=== PATIENT | male | born 1985 | race Two or more races ===

== ENCOUNTER → 2024-11-11 | Emergency (ER) | payer OTHER ==
[~2024-11-11] VITALS: Ht 170.2 cm; Wt 71.2 kg
[~2024-11-11] MED LIST: 0.9 % SODIUM CHLORIDE 1,000 ML IV ONE
[2024-11-11 12:41] LABS: BASO % 0.4 % (0.1-1.2); EOS # 0.10 (0.04-0.54); EOS % 0.7 % (0.7-7.0); LYMPH # 3.96 (1.18-3.74); LYMPH % 26.0 % (19.3-53.1); MEAN PLATELET VOLUME 9.70 fl (9.4-12.4); MONO # 1.34 (0.24-0.82); MONO % 8.8 % (4.7-12.5); NEUT # 9.74 (1.56-6.13); NEUT % 63.8 % (34.0-71.1); RED CELL DISTRIBUTION WIDTH 12.7 % (11.6-14.4)
[2024-11-11 13:06] LABS: COVID-19 AG NEGATIVE (NEGATIVE)
[2024-11-11 14:38] LABS: INR 0.97
[2024-11-11 14:55] LABS: ALT/SGPT 33.0 U/L (12-78); AST/SGOT 39.0 U/L (15-37); BILIRUBIN TOTAL 0.35 mg/dL (0.3-1.2); BUN CREA RATIO 10.0 (7.0-25.0); CREATININE SERUM 0.87 mg/dL (0.70-1.30); GFR 98.2; GLOBULINA 3.7 G/DL (2.4-3.5); GLUCOSE FASTING 124.0 mg/dL (65-100); OSMOLALITY SERUM 278.0 MOSM/KG (275-295)
[2024-11-11 15:07] LABS: PHOSPHOKINASE CREATININE 1092.0 U/L (39-308)
[2024-11-12 07:20] VITALS: BP 123/82; O2SAT 99
[2024-11-12 08:37] LABS: URINE APPEARANCE Clear; URINE BILIRRUBIN Negative (NEGATIVE); URINE BLOOD Negative; URINE COLOR Yellow; URINE GLUCOSE Negative (NEGATIVE); URINE KETONE Trace (NEGATIVE); URINE LEUKOCYTE Negative; URINE NITRATE Negative; URINE PROTEIN Negative (NEGATIVE); URINE UROBILINOGEN 0.2 E.U./dl
[2024-11-12 08:38] LABS: URINE BACTERIA 10.8 uL (0.0-1933); URINE RBC 20.9 uL (0.0-20.8)
[2024-11-12 08:43] LABS: URINE CAST 0.00 uL (0.0-1.40); URINE EPITHELIAL CELLS 0.9 uL (0.0-38.8); URINE WBC 1.5 uL (0.0-23.2)
[2024-11-12 09:09] LABS: COCAINE POSITIVE (NEGATIVE); METHADONE NEGATIVE (NEGATIVE); OPIATES POSITIVE (NEGATIVE); THC ( Cannabinoids) POSITIVE (NEGATIVE)
[2024-11-12 09:29] LABS: BASO % 0.7 % (0.1-1.2); EOS # 0.14 (0.04-0.54); EOS % 1.9 % (0.7-7.0); LYMPH # 2.64 (1.18-3.74); LYMPH % 36.2 % (19.3-53.1); MEAN PLATELET VOLUME 9.30 fl (9.4-12.4); MONO # 0.42 (0.24-0.82); MONO % 5.8 % (4.7-12.5); NEUT # 4.02 (1.56-6.13); NEUT % 55.1 % (34.0-71.1); RED CELL DISTRIBUTION WIDTH 13.2 % (11.6-14.4)
[2024-11-12 10:20] LABS: ALT/SGPT 26.0 U/L (12-78); AST/SGOT 26.0 U/L (15-37); BILIRUBIN TOTAL 0.5 mg/dL (0.3-1.2); BUN CREA RATIO 11.0 (7.0-25.0); CREATININE SERUM 0.66 mg/dL (0.70-1.30); GFR 135.08; GLOBULINA 3.2 G/DL (2.4-3.5); GLUCOSE FASTING 127.0 mg/dL (65-100); OSMOLALITY SERUM 283.0 MOSM/KG (275-295); PHOSPHOKINASE CREATININE 459.0 U/L (39-308)
== END | disposition left against medical advice (07) ==
LOC: ER 10:43
PROVIDERS: General Practice
DX: F20.89 Other schizophrenia (principal); R45.851 Suicidal ideations; F19.10 Other psychoactive substance abuse, uncomplicated; F14.10 Cocaine abuse, uncomplicated; F12.10 Cannabis abuse, uncomplicated; Z88.8 Allergy status to other drugs, medicaments and biological substances; Z20.822 Contact with and (suspected) exposure to COVID-19

== ENCOUNTER → 2024-12-28 | Emergency (ER) | payer OTHER ==
[~2024-12-28] VITALS: Ht 170.2 cm; Wt 71.7 kg
[2024-12-28 11:55] LABS: BASO % 0.5 % (0.1-1.2); EOS # 0.40 (0.04-0.54); EOS % 4.3 % (0.7-7.0); LYMPH # 2.59 (1.18-3.74); LYMPH % 28.2 % (19.3-53.1); MEAN PLATELET VOLUME 9.30 fl (9.4-12.4); MONO # 0.52 (0.24-0.82); MONO % 5.7 % (4.7-12.5); NEUT # 5.62 (1.56-6.13); NEUT % 61.1 % (34.0-71.1); RED CELL DISTRIBUTION WIDTH 12.5 % (11.6-14.4)
[2024-12-28 12:25] LABS: ALT/SGPT 23.0 U/L (12-78); AST/SGOT 23.0 U/L (15-37); BILIRUBIN TOTAL 0.58 mg/dL (0.3-1.2); BUN CREA RATIO 15.0 (7.0-25.0); CREATININE SERUM 0.72 mg/dL (0.70-1.30); GFR 122.17; GLOBULINA 3.5 G/DL (2.4-3.5); GLUCOSE FASTING 111.0 mg/dL (65-100); OSMOLALITY SERUM 278.0 MOSM/KG (275-295)
[2024-12-28 12:32] LABS: COVID-19 AG NEGATIVE (NEGATIVE)
== END | disposition left against medical advice (07) ==
LOC: ER 10:10
PROVIDERS: General Practice
DX: M79.18 Myalgia, other site (principal); Z20.822 Contact with and (suspected) exposure to COVID-19